=== PATIENT | male | born 1965 | race Caucasian/White ===

== ENCOUNTER 2024-09-10 12:34 | Emergency (ER) | payer MEDICAID ==
[~2024-09-10] VITALS: Ht 170.2 cm; Wt 100.0 kg
[~2024-09-10 12:34] MED LIST: CEPH500C2 MT; CYCL5TAB3 MT; HYDR12.54 MT; IBUP-2029 MT
[2024-09-10 12:52] VITALS: O2SAT 99
[2024-09-10 12:56] VITALS: TEMP 36.9
[2024-09-10] MEDS: IBUPROFEN 600MG TABLET PO ONE (13:39)
[2024-09-10 14:24] LABS: CLARITY URINE CLEAR (CLEAR); COLOR URINE YELLOW (YELLOW); GLUCOSE URINE 3+ (NEGATIVE); KETONES URINE NEGATIVE (NEGATIVE); LEUKOCYTE ESTERASE URINE NEGATIVE (NEGATIVE); NITRITE URINE NEGATIVE (NEGATIVE); OCCULT BLOOD URINE 2+ (NEGATIVE); PH URINE 5.5 (4.5-8.0); PROTEIN URINE 4+ (NEGATIVE); SPECIFIC GRAVITY URINE 1.023 (1.005-1.030)
[2024-09-10 14:55] LABS: BACTERIA URINE TRACE; SQUAMOUS EPITHELIAL CELL URINE FEW /lpf (RARE/1+)
[2024-09-10 14:56] LABS: WBC URINE 0-2 /hpf (0-2)
[2024-09-10 14:57] LABS: RBC URINE 0-2 /hpf (0-2)
[2024-09-10 15:02] VITALS: BP 147/97; PULSE 81; RESP 16; O2SAT 100
== END 2024-09-10 18:27 | disposition home or self-care (01) ==
LOC: ER 13:13
DX: G89.29 Other chronic pain (principal); M54.50 Low back pain, unspecified; J45.909 Unspecified asthma, uncomplicated; Z79.899 Other long term (current) drug therapy
CPT/HCPCS: 72100; 81003; 99284

== ENCOUNTER 2024-09-28 13:11 | Emergency (ER) | payer MEDICAID ==
[~2024-09-28] VITALS: Ht 177.8 cm; Wt 90.7 kg
[2024-09-28 13:13] VITALS: O2SAT 100
[2024-09-28] MEDS: LIDOCAINE 5% PATCH TOP SCH (14:49)
[2024-09-28] MEDS: CYCLOBENZAPRINE 10MG TABLET PO SCH (14:50)
[2024-09-28] MEDS: MORPHINE SULFATE 4 MG/ML INJ (FOR IV/IM USE) IM ONE (14:50)
[2024-09-28] MEDS ORDERED: HYDR-4001 MT (16:15)
[2024-09-28] MEDS ORDERED: CYCL5TAB3 MT (16:20)
[2024-09-28] MEDS ORDERED: LIDO-53 TP (16:20)
[2024-09-28 18:10] VITALS: BP 223/114; PULSE 69; RESP 16; TEMP 36.4; O2SAT 100
== END 2024-09-28 18:27 | disposition home or self-care (01) ==
LOC: ER 13:11
DX: G89.29 Other chronic pain (principal); M54.50 Low back pain, unspecified; J45.909 Unspecified asthma, uncomplicated; Z79.899 Other long term (current) drug therapy
CPT/HCPCS: 99283; 96372; J2270